=== PATIENT | female | born 2000 | race Two or more races ===

== ENCOUNTER 2025-05-03 14:44 | Emergency (ER) | payer OTHER ==
[~2025-05-03] VITALS: Ht 167.6 cm; Wt 50.3 kg
[2025-05-03 15:10] VITALS: BP 140/78; TEMP 98.1
[2025-05-03] MEDS ORDERED: AMOX500T2 PO (15:16)
[2025-05-03] MEDS ORDERED: DOXY100C2 PO (15:16)
[2025-05-03] MEDS ORDERED: ALBU18HF2 INH (15:16)
[2025-05-03 15:29] VITALS: O2SAT 98
== END 2025-05-03 15:30 | disposition home or self-care (01) ==
LOC: ER 14:59
DX: J22 Unspecified acute lower respiratory infection (principal)